=== PATIENT | male | born 1995 ===

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

== ENCOUNTER 2018-01-08 23:10 | Emergency (ER) | payer SELFPAY ==
[2018-01-08 23:11] VITALS: BMI 25.7
--- NOTE | 2018-01-09 00:01 | ED PDOC ---
HPI: Headache Chief Complaint (Provider): Frontal headace, fever History Per: Patient History/Exam Limitations: no limitations Onset/Duration Of Symptoms: Hrs Current Symptoms Are (Timing): Still Present Additional Complaint(s): 22 yo male with no medical problems presents for evaluation of fever and headache which began this evening. Pt reports taking motrin for headache but states it is the same. Pt states this is not the worst headache of his life. Pt did not take temperature at home but reports feeling hot. No sore throat. No ear pain. No cough. <Tracy Maier - Last Filed: 01/09/18 01:34> <John Bangura - Last Filed: 01/10/18 05:07> Time Seen by Provider: 01/08/18 23:35 Chief Complaint (Nursing): Headache Past Medical History Reviewed: Historical Data, Nursing Documentation, Vital Signs Vital Signs: Last Vital Signs Temp 98.7 F 01/08/18 23:19 Pulse 80 01/08/18 23:19 Resp 16 01/08/18 23:19 BP 130/77 01/08/18 23:19 Pulse Ox 98 01/08/18 23:19 - Medical History PMH: No Chronic Diseases Other PMH: Headaches in the past, has not been diagnosed with migraines - Surgical History Surgical History: No Surg Hx - Family History Family History: States: Unknown Family Hx - Living Arrangements Living Arrangements: With Family - Social History Current smoker - smoking cessation education provided: No <Tracy Maier - Last Filed: 01/09/18 01:34> Vital Signs: Last Vital Signs Temp 98.4 F 01/09/18 02:00 Pulse 81 01/09/18 02:00 Resp 18 01/09/18 02:00 BP 133/64 01/09/18 02:00 Pulse Ox 100 01/09/18 02:00 <John Bangura - Last Filed: 01/10/18 05:07> - Home Medications Home Medications: Ambulatory Orders Medication Instructions Recorded Azithromycin [Zithromax Z-Rikki] 250 mg PO DAILY #6 tab 05/07/15 Ibuprofen [Motrin] 400 mg PO Q6H PRN #20 tab 05/07/15 Guaifenesin [Mucinex] 600 mg PO BID #14 tab.er.12h 12/12/16 RX: Azithromycin [Zithromax] 250 mg PO DAILY #6 tab 12/12/16 - Allergies Allergies/Adverse Reactions: Allergies Allergy/AdvReac Type Severity Reaction Status Date / Time No Known Allergies Allergy Verified 01/08/18 23:19 Review of Systems ROS Statement: Except As Marked, All Systems Reviewed And Found Negative Constitutional: Positive for: Fever. Negative for: Chills, Sweats, Weakness, Malaise ENT: Negative for: Ear Pain, Nose Discharge, Throat Pain, Throat Swelling Cardiovascular: Negative for: Chest Pain, Palpitations Respiratory: Negative for: Cough, Shortness of Breath Gastrointestinal: Negative for: Nausea, Vomiting, Abdominal Pain Neurological: Positive for: Headache <Tracy Maier Last Filed: 01/09/18 01:34> Physical Exam - Reviewed Nursing Documentation Reviewed: Yes Vital Signs Reviewed: Yes - Physical Exam Appears: Positive for: Well, Non-toxic, No Acute Distress Head Exam: Positive for: ATRAUMATIC, NORMAL INSPECTION, NORMOCEPHALIC Skin: Positive for: Normal Color, Warm, DRY Eye Exam: Positive for: Normal appearance ENT: Positive for: Normal ENT Inspection, Pharynx Is, TM Is/Are Neck: Positive for: Normal, Painless ROM Cardiovascular/Chest: Positive for: Regular Rate, Rhythm Respiratory: Positive for: Normal Breath Sounds. 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 Negative for: Aphasia, Facial Droop <Tracy Maier - Last Filed: 01/09/18 01:34> - ECG O2 Sat by Pulse Oximetry: 98 Pulse Ox Interpretation: Normal <Tracy Maier - Last Filed: 01/09/18 01:34> Medical Decision Making Medical Decision Making: tylenol for headache. Influenza pending <Tracy Maier Last Filed: 01/09/18 01:34> Disposition - Patient ED Disposition Is Patient to be Admitted: No Counseled Patient/Family Regarding: Diagnosis, Need For Followup - Disposition Disposition: Routine/Home Disposition Time: 01:35 <Tracy Maier Last Filed: 01/09/18 01:34> <Willem,John - Last Filed: 01/10/18 05:07> - Clinical Impression Clinical Impression: Viral illness - Disposition Referrals: [facility] [place] [Outside] Condition: STABLE Instructions: Viral Syndrome (DC) Forms: [employer] (Portuguese) Print Language: ITALIAN - PA / CARAMEL CANDY MAKER / Resident Statement MD/DO has reviewed & agrees with the documentation as recorded. <John Bangura - Last Filed: 01/10/18 05:07>
[2018-01-09 03:38] VITALS: BP 133/64; PULSE 81; RESP 18; TEMP 98.4; O2SAT 100
== END 2018-01-09 02:05 | disposition home or self-care (01) ==
LOC: H.ER 23:10
DX: B34.9 Viral infection, unspecified (principal)